=== PATIENT | female | born 1960 | race Caucasian/White ===

== ENCOUNTER 2019-11-17 04:11 | Emergency (ER) | payer MEDICAID ==
[~2019-11-17] VITALS: Ht 165.1 cm; Wt 73.5 kg
[2019-11-17 04:19] VITALS: Ht 165.1 cm; Wt 73.5 kg
[2019-11-17 05:21] LABS: BASOPHIL % 0.9 % (0-2); PLATELET COUNT 215 x10^3mcL (130-400); RED CELL DISTRIBUTION WIDTH 17.5 % (11.5-14.5)
[2019-11-17 05:40] LABS: CARBON DIOXIDE 24.7 mmol/L (21-32); CHLORIDE SERUM 103 mmol/L (98-107); CREATININE SERUM 0.6 mg/dL (0.6-1.0); GFR1 > 60 mL/min; GLUCOSE SERUM 94 mg/dL (74-106); POTASSIUM SERUM 4.4 mmol/L (3.5-5.1); SODIUM SERUM 135 mmol/L (136-145)
[2019-11-17 05:45] LABS: ALKALINE PHOSPHATASE 298 U/L (46-116); ALT/SGPT 43 U/L (14-59); AST/SGOT 48 U/L (15-37); BILIRUBIN TOTAL 0.9 mg/dL (0.20-1.00); LIPASE 178 IU/L (73-393); TOTAL PROTEIN, SERUM 6.3 g/dL (6.4-8.2)
[2019-11-17 05:47] LABS: ALBUMIN 2.7 g/dL (3.4-5.0)
[2019-11-17 08:34] VITALS: BP 128/81
== END 2019-11-17 08:34 | disposition home or self-care (01) ==
LOC: ED 04:11
PROVIDERS: Emergency Medicine
DX: R18.8 Other ascites (principal); Z85.05 Personal history of malignant neoplasm of liver; Z88.2 Allergy status to sulfonamides
CPT/HCPCS: 36415; J7030; Q0092